=== PATIENT | male | born 1945 | race Caucasian/White ===

== ENCOUNTER 2016-09-22 10:01 | Outpatient (CLI) | payer MEDICARE ==
[2016-09-22 10:40] LABS: #Eosinphils 0.2 thou/uL (0.0-0.7); #Lymphocytes 1.4 thou/uL (1.20-3.40); #Monocytes 0.6 thou/uL (0.11-0.59); #Neutrophils 5.5 thou/uL (1.40-6.50); %Basophils 0.2 % (0.0-1.0); %Eosinophils 2.1 % (0.0-10.0); %Lymphocytes 17.9 % (21.0-51.0); %Monocytes 7.4 % (0.0-10.0); %Neutrophils 72.5 % (42.0-75.0); Hemoglobin 14.5 g/dL (14.0-18.0); Mean Corpuscular HGB CONC 34.3 g/dL (32.0-36.0); Mean Corpuscular Hemoglobin 29.5 pg (27.0-31.0); Mean Platelet Volume 7.7 fL (7.4-10.4); Platelet Count 183 thou/uL (130-400); RBC Distribution Width 12.6 % (11.5-14.5); White Blood Cell (WBC) Count 7.6 thou/uL (4.8-10.8)
[2016-09-22 10:45] LABS: ALT (SGPT) 27 U/L (8-55); AST (SGOT) 15 U/L (5-34); Albumin 3.8 g/dL (3.4-4.8); Alkaline Phosphatase 174 U/L (40-150); Anion Gap 14 mmol/L (10-20); BUN (Urea Nitrogen) 20 mg/dL (8.4-25.7); Bilirubin, Total 1.3 mg/dL (0.2-1.2); Calc. Creatinine Clearance 0 mL/min (70-130); Calcium 9.4 mg/dL (7.8-10.44); Carbon Dioxide 24 mmol/L (23-31); Cardiac Risk 2.6 (Less than 4.5); Chloride 108 mmol/L (98-107); Cholesterol 98 mg/dl (< 200 Desired); Estimated GFR-MDRD Greater than 90; Globulin 2.8 g/dL (2.4-3.5); Glucose 118 mg/dL (83-110); HDL Cholesterol 37 mg/dL (>60 Neg Risk); LDL Cholesterol, Calculated 51 mg/dL; Potassium 3.8 mmol/L (3.5-5.1); Protein, Total 6.6 g/dL (5.8-8.1); Sodium 142 mmol/L (136-145); Triglycerides 50 mg/dL (Less than 150)
== END 2016-09-22 10:02 | disposition home or self-care (01) ==
LOC: HPCALD 10:01
PROVIDERS: ATTEND Family Medicine
DX: E78.5 Hyperlipidemia, unspecified (principal); I10 Essential (primary) hypertension
CPT/HCPCS: 36415; 80053; 80061; 84443; 85025

== ENCOUNTER 2016-09-26 08:31 | Outpatient (CLI) | payer MEDICARE ==
--- NOTE | 2016-09-26 17:29 | ULT ---
ABDOMINAL ULTRASOUND 09/26/16 Ultrasonography of the abdomen was performed for evaluation of this patient with elevated liver func tion test and a history of a minimal aortic aneurysm. Comparison is made with the August 2015 ultrasoun d. There has been very little change in the interval. The liver is still mildly enlarged measuring 16.7 cm in oblique sagittal length. Internally, no focal lesions or dilated ducts were seen. Portal veno us flow was towards the liver as expected. The gallbladder contains no stones or wall thickening. Th e common bile duct was a normal 4 mm in caliber. The pancreas was mostly obscured by gas. The inferi or vena cava was unremarkable. The spleen was normal in size. The right kidney is 13.0 cm long and t he left is 10.9 cm. The abdominal aorta shows a maximal diameter of 2.3 cm distally which compares favorably with the 2. 2 cm value last year. IMPRESSION: 1. Little change in the appearance of the abdomen since last year. 2. Mild hepatomegaly, unchanged. 3. 2.3 cm dilation of the distal abdominal aorta, comparable to last year. POS: HOME
== END 2016-09-26 08:32 | disposition home or self-care (01) ==
LOC: BURULT 08:31
PROVIDERS: ATTEND Family Medicine
DX: I71.4 Abdominal aortic aneurysm, without rupture (principal); R17 Unspecified jaundice; R16.0 Hepatomegaly, not elsewhere classified; I77.811 Abdominal aortic ectasia
CPT/HCPCS: 76700

== ENCOUNTER 2017-04-10 09:28 | Outpatient (CLI) | payer MEDICARE ==
--- NOTE | 2017-04-14 08:09 | ULT ---
ABDOMINAL ULTRASOUND: HISTORY: Check abdominal aortic aneurysm. COMPARISON: Abdomen ultrasound from 09/26/2016. FINDINGS: The visualized pancreatic parenchyma is unremarkable. The main portal vein is patent. The right kidney measures 12 x 5.9 x 5.4 cm without mass, hydronephrosis, or abnormal calcifications. There is a right superior pole endophytic renal cyst. The aorta measures 1.7, 2.2, and 1.2 cm mid, proximally, and distally. The spleen measures 12 cm in length. The left kidney measures 11.6 x 6.1 x 5.4 cm, without mass, hydronephrosis, or abnormal calcification s. The gallbladder is normal. The common bile duct measures 5 mm. IMPRESSION: 1. Unchanged size of the abdominal aorta. 2. Mild hepatomegaly with increased hepatic echotexture, which can be seen with steatosis or hepatoc ellular disease. POS: [facility]
== END 2017-04-10 09:29 | disposition home or self-care (01) ==
LOC: BURULT 09:28
PROVIDERS: ATTEND Family Medicine
DX: I71.4 Abdominal aortic aneurysm, without rupture (principal); R16.0 Hepatomegaly, not elsewhere classified
CPT/HCPCS: 76700

== ENCOUNTER 2017-05-22 10:49 | Outpatient (CLI) | payer MEDICARE ==
--- NOTE | 2017-05-22 19:36 | RAD ---
RIGHT SHOULDER THREE VIEWS: 05/22/17 No fracture, dislocation, or AC joint widening was seen. There may have been an old injury to the dis aiden clavicle. There is a 1 cm sclerotic area seen associated with the humeral head. I doubt its curre nt importance. The glenohumeral joint was unremarkable. IMPRESSION: No acute bony finding. POS: HOME
== END 2017-05-22 10:50 | disposition home or self-care (01) ==
LOC: BURRAD 10:49
PROVIDERS: ATTEND Family Medicine
DX: M25.511 Pain in right shoulder (principal)

== ENCOUNTER 2019-05-25 10:50 | Outpatient (CLI) | payer MEDICARE ==
--- NOTE | 2019-05-25 15:40 | RAD ---
ABDOMEN TWO VIEWS: 05/25/19 Comparison is made with a 08/06/18 study. No free air is seen beneath the diaphragm. Gas pattern is nonspecific with gas seen in large and smal l bowel, none of which is distended. A moderate amount of fecal material is seen in the colon. A few pelvic calcifications are most likely phleboliths. I cannot confirm calcifications over these renal s hadows. IMPRESSION: Nonspecific abdominal findings. POS: HOME
== END 2019-05-25 10:51 | disposition home or self-care (01) ==
LOC: BURRAD 10:50
PROVIDERS: ATTEND Family Medicine
DX: R10.9 Unspecified abdominal pain (principal)
CPT/HCPCS: 74019

== ENCOUNTER 2019-06-08 11:53 | Outpatient (CLI) | payer MEDICARE ==
[2019-06-08 12:15] LABS: #Eosinphils 0.1 thou/uL (0.0-0.7); #Lymphocytes 1.4 thou/uL (1.20-3.40); #Monocytes 0.6 thou/uL (0.11-0.59); #Neutrophils 4.9 thou/uL (1.40-6.50); %Basophils 0.3 % (0.0-1.0); %Eosinophils 1.1 % (0.0-10.0); %Lymphocytes 20.3 % (21.0-51.0); %Monocytes 8.3 % (0.0-10.0); %Neutrophils 70.1 % (42.0-75.0); Hemoglobin 14.9 g/dL (14.0-18.0); Mean Corpuscular HGB CONC 32.8 g/dL (32.0-36.0); Mean Corpuscular Hemoglobin 28.6 pg (27.0-31.0); Mean Corpuscular Volume 87.2 fL (78.0-98.0); Mean Platelet Volume 7.3 fL (7.4-10.4); Platelet Count 208 thou/uL (130-400); RBC Distribution Width 12.4 % (11.5-14.5); Red Blood Cell (RBC) Count 5.22 mill/uL (4.70-6.10)
[2019-06-08 12:20] LABS: Bilirubin Negative (Negative); Blood, Urine Negative (Negative); Clarity Clear (Clear); Glucose, Urine (Dipstick) Negative (Negative); Leukocyte Negative (Negative); Nitrite Negative (Negative); Protein, Urine (Dipstick) Negative (Neg-Trace); Urobilinogen 0.2 mg/dL (Less than 2)
[2019-06-08 12:27] LABS: ALT (SGPT) 21 U/L (8-55); AST (SGOT) 13 U/L (5-34); Albumin 4.2 g/dL (3.4-4.8); Alkaline Phosphatase 256 U/L (40-110); Anion Gap 12 mmol/L (10-20); BUN (Urea Nitrogen) 15 mg/dL (8.4-25.7); Bilirubin, Total 0.9 mg/dL (0.2-1.2); Calc. Creatinine Clearance 0 mL/min (70-130); Calcium 9.7 mg/dL (7.8-10.44); Carbon Dioxide 26 mmol/L (23-31); Chloride 109 mmol/L (98-107); Estimated GFR-MDRD Greater than 90; Globulin 2.8 g/dL (2.4-3.5); Glucose 129 mg/dL (83-110); Potassium 4.5 mmol/L (3.5-5.1); Sodium 142 mmol/L (136-145)
[2019-06-08 12:48] LABS: Bacteria/HPF Rare-Few HPF (None Seen); RBC/HPF None Seen HPF (0-3); Squamous Epithelial 0-3 HPF (0-3); WBC/HPF 0-3 HPF (0-3)
[2019-06-08 12:49] LABS: Calcium Oxalate Crystals 1+ HPF (None Seen)
--- NOTE | 2019-06-08 14:24 | RAD ---
CHEST 2 VIEWS: Date: 06/08/2019 Comparison made with an 02/25/2015 study. The heart is normal in size. There is no vascular congestion or edema. The lungs are clear with no fo heidi infiltrates seen. There is a fat pad in the right cardiophrenic angle that is a little more promi nent than before. A questionable subcentimeter nodular area is seen immediately to the left of the he art that I do not appreciate on the old study. This is also at the end of the rib, so may be a promin ent costochondral junction. I would merely follow this up with another chest x-ray in 3-6 months. IMPRESSION: No acute findings. POS: HOME
== END 2019-06-08 11:54 | disposition home or self-care (01) ==
LOC: BUREKG 11:53
PROVIDERS: ATTEND Family Medicine
DX: Z01.818 Encounter for other preprocedural examination (principal); I25.10 Atherosclerotic heart disease of native coronary artery without angina pectoris; R35.0 Frequency of micturition
CPT/HCPCS: 36415; 71046; 80053; 81001; 85025; 87086; 93005; 93010

== ENCOUNTER 2021-04-04 16:24 | Emergency (ER) | payer MEDICARE | END 2021-04-04 17:20 | disposition home or self-care (01) | LOC: BURERS 16:24 | DX: K02.9 Dental caries, unspecified (principal); I10 Essential (primary) hypertension; E11.9 Type 2 diabetes mellitus without complications; F17.200 Nicotine dependence, unspecified, uncomplicated | CPT/HCPCS: 99282 ==

== ENCOUNTER 2021-09-04 09:30 | Outpatient (CLI) | payer MEDICARE | END 2021-09-04 09:31 | disposition home or self-care (01) | LOC: BURRAD 09:30 | PROVIDERS: ATTEND Family Medicine | DX: R05.9 Cough, unspecified (principal); R91.1 Solitary pulmonary nodule | CPT/HCPCS: 71046 ==